=== PATIENT | female | born 1975 | race American Indian/Alaskan Native ===

== ENCOUNTER 2018-10-17 23:30 | Emergency (ER) | payer MEDICAID ==
[2018-10-17 23:30] VITALS: BMI 38.4
[2018-10-17 23:58] VITALS: TEMP 98.7; O2SAT 100
[2018-10-18] MEDS ORDERED: Naproxen 550 mg Tab PO STA (00:35)
[2018-10-18] MEDS ORDERED: Naproxen 550 mg Tab PO ONE (01:07)
--- NOTE | 2018-10-18 01:51 | C.PDOC ---
History Of Present Illness 43 year old female presents with atraumatic right knee pain since 10/03/18. Patient has had the pain intermittently for the past few months, usually better with OTC medications but she reports they no longer help. Denies weakness or numbness. Time Seen by Provider: 10/18/18 00:15 Chief Complaint (Nursing): Lower Extremity Problem/Injury History Per: Patient History/Exam Limitations: no limitations Onset/Duration Of Symptoms: Days, Intermittent Episodes Current Symptoms Are (Timing): Still Present Recent travel outside of the [place]: No Past Medical History Reviewed: Historical Data, Nursing Documentation, Vital Signs Vital Signs: Last Vital Signs Temp 98.7 F 10/17/18 23:51 Pulse 88 10/17/18 23:51 Resp 20 10/17/18 23:51 BP 173/99 H 10/17/18 23:51 Pulse Ox 100 10/17/18 23:51 Primary Care Provider: Guerrero Reyna - Medical History PMH: HTN - [facility] Procedures ARTIF RUPT MEMBRANES NEC (03/26/13) BILAT ENDOS OCC TUBE NEC (08/09/13) MONITORING NOS (02/02/13) INJECT/INFUSE NEC (02/02/13) MANUAL ASSIST DELIV NEC (03/26/13) Family History: States: Unknown Family Hx - Social History Hx Alcohol Use: Yes Hx Substance Use: No Review Of Systems Musculoskeletal: Positive for: Other (Right knee pain) Neurological: Negative for: Weakness, Numbness Physical Exam - Physical Exam Appears: Non-toxic Skin: Normal Color, Warm Head: Atraumatic, Normacephalic Eye(s): bilateral: Normal Inspection Extremity: Normal ROM (x4), Capillary Refill (<2 seconds), Other (Crepitus with palpation of right knee. Swelling and tenderness to anterior right knee.) Pulses: Left Dorsalis Pedis: Normal, Right Dorsalis Pedis: Normal Neurological/Psych: Oriented x3, Normal Speech, Normal Motor, Normal Sensation Gait: Steady ED Course And Treatment O2 Sat by Pulse Oximetry: 100 (room air) Pulse Ox Interpretation: Normal Progress Note: Right knee x-ray ordered, results were negative. Naproxen administered. Patient is resting comfortably in no acute distress, ambulatory with steady gait, vitals are stable, will discharge home with Rx and instructions to follow up with PMD. Disposition Counseled Patient/Family Regarding: Diagnosis, Need For Followup, Rx Given - Disposition Referrals: Guerrero Reyna MD [Staff Provider] - Disposition: HOME/ ROUTINE Disposition Time: 01:47 Condition: STABLE Additional Instructions: Please follow up with PMD Take medications as prescribed Knee brace for support Return to ER if worse Prescriptions: Naproxen [Naprosyn] 1 tab PO BID PRN #20 tab PRN Reason: Pain Instructions: Knee Pain (DC) Forms: [employer] (Danish) - Clinical Impression Clinical Impression: Arthralgia of right knee - PA / CARDIO TECH / Resident Statement MD/DO has reviewed & agrees with the documentation as recorded. - Scribe Statement The provider has reviewed the documentation as recorded by the Scribmaria isabel Albert All medical record entries made by the Monicaibmaria isabel were at my direction and personally dictated by me. I have reviewed the chart and agree that the record accurately reflects my personal performance of the history, physical exam, medical decision making, and the department course for this patient. I have also personally directed, reviewed, and agree with the discharge instructions and disposition.
[2018-10-18 02:01] VITALS: BP 163/95; PULSE 78; RESP 18
--- NOTE | 2018-10-18 10:29 | RAD ---
Date of service: 10/18/2018 PROCEDURE: Right Knee Radiographs. HISTORY: pain, swlling , no trauma COMPARISON: None. TECHNIQUE: 2 views obtained. FINDINGS: BONES: Normal. No fracture. JOINTS: Normal. No osteoarthritis. JOINT EFFUSION: None. OTHER FINDINGS: None. IMPRESSION: Normal radiographs of the right knee.
== END 2018-10-18 02:10 | disposition home or self-care (01) ==
LOC: C.ER 23:30
DX: M25.561 Pain in right knee (principal); I10 Essential (primary) hypertension